=== PATIENT | male | born 1980 | race Caucasian/White ===

== ENCOUNTER 2018-11-23 12:58 | Inpatient (IN) | payer OTHER ==
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
[2018-11-23] MEDS ORDERED: MENTHOL/PHENOL 1 EACH UD MM PRN (20:19)
[2018-11-23] MEDS ORDERED: DICYCLOMINE HCL 10 MG CAPSULE PO PRN (20:19)
[2018-11-23] MEDS ORDERED: MAGNESIUM CITRATE 300 ML BOTTLE PO PRN (20:19)
[2018-11-23] MEDS ORDERED: MAG HYDROX/AL HYDROX/SIMETH 30 ML UNIT-DOSE CUP PO PRN (20:19)
[2018-11-23] MEDS ORDERED: chlordiazePOXIDE HCL 25 MG CAPSULE PO PRN (20:19)
[2018-11-23] MEDS ORDERED: MAGNESIUM HYDROX 2400MG/30ML ORAL SUSPENSION 30 ML CUP PO PRN (20:19)
[2018-11-23] MEDS ORDERED: P-EPHED 60MG/TRIPROLIDI 2.5MG TABLET PO PRN (20:19)
[2018-11-23] MEDS ORDERED: METHOCARBAMOL 500 MG TABLET PO PRN (20:19)
[2018-11-23] MEDS ORDERED: guaiFENesin 200 MG/10 ML 10 ML UNIT-DOSE CUPS PO PRN (20:19)
[2018-11-23] MEDS ORDERED: ACETAMINOPHEN 325 MG TABLET (FP) PO PRN (20:19)
[2018-11-23] MEDS: THIAMINE HCL 100 MG TABLET (FP) PO SCH (21:38)
[2018-11-23] MEDS: chlordiazePOXIDE HCL 25 MG CAPSULE PO SCH (22:00)
[2018-11-24] MEDS: chlordiazePOXIDE HCL 25 MG CAPSULE PO SCH ×4 (05:35→22:14)
--- NOTE | 2018-11-24 10:31 | PN ---
S CIWA - CIWA Score Nausea/Vomitin-No Nausea/No Vomiting Muscle Tremors: 2 Anxiety: 3 Agitation: 2 Paroxysmal Sweats: 3 Orientation: 0-Oriented Tacttile Disturbances: 0-None Auditory Disturbances: 0-None Visual Disturbances: 0-None Headache: 2-Mild CIWA-Ar Total Score: 12 BHS Progress Note (SOAP) Subjective: c/o headache, sweats, anxiety, and shakes. Objective: 11/24/18 10:30 Vital Signs 11/24/18 11/24/18 11/24/18 03:30 06:00 09:30 Temperature 97.7 F 95.9 F L Pulse Rate 75 89 Respiratory 18 18 18 Rate Blood Pressure 117/59 L 134/76 Labs pending. Assessment: 11/24/18 10:30 AOX3, in no respiratory distress. Full ROM, ambulating in the unit. Withdrawal symptoms Plan: continue detox.
[2018-11-24 10:36] LABS: PH,URINE 6.5 (5.0-8.0); URINE APPEARANCE CLEAR; URINE BILIRUBIN NEGATIVE (NEGATIVE); URINE COLOR YELLOW; URINE GLUCOSE (UA) TRACE (NEGATIVE); URINE KETONE 1+ (NEGATIVE); URINE LEUK ESTERASE NEGATIVE (NEGATIVE); URINE NITRITE NEGATIVE (NEGATIVE); URINE PROTEIN NEGATIVE (NEGATIVE)
[2018-11-24] MEDS: PRENATAL VITAMINS W/ FOLIC ACID TABLET (FP) PO SCH (11:04)
[2018-11-24 13:11] LABS: ALBUMIN 3.9 g/dl (3.4-5.0); BILIRUBIN,TOTAL 0.6 mg/dL (0.2-1); BLOOD UREA NITROGEN 5.8 mg/dL (7-18); CALCIUM 9.5 mg/dL (8.5-10.1); CREATININE 0.9 mg/dL (0.55-1.3); POTASSIUM 3.3 mmol/L (3.5-5.1); TOT PROT 7.7 g/dl (6.4-8.2)
[2018-11-24 13:12] LABS: HEMATOCRIT 44.6 % (35.4-49); HEMOGLOBIN 15.1 GM/dL (11.7-16.9); MCH 32.6 pg (25.7-33.7); MCHC 33.8 g/dl (32.0-35.9); MEAN CELL VOLUME 96.4 fl (80-96); MEAN PLT VOLUME 7.5 fl (7.5-11.1); PLATELET COUNT 208 K/MM3 (134-434); RBC 4.63 M/mm3 (4.00-5.60); RDW 13.1 % (11.9-15.9); WHITE BLOOD COUNT 4.8 K/mm3 (4.0-10.0)
--- NOTE | 2018-11-24 13:33 | CONSULT ---
[facility] Psychiatric Consult - Data Date of interview: 11/24/18 Admission source: [facility] Identifying data: First admission to [facility] for this 38 y/o [place]-born male self-referred for detoxification (alcohol). Interviewd at [address] [place] [address]. Patient is single, no children, undomiciled, unemployed and deprived of any source of income. Substance Abuse History: Confirmed by patient. Details in current [facility] report as follows : Smoking history: Former smoker. Have you smoked in the past 12 months : No. Cigars Per Day: 0. Hx Chewing Tobacco Use: No. Initiated information on smoking cessation: No. - Substance & Tx. History. Hx Alcohol Use: Yes. Hx Substance Use: Yes. Substance Use Type: Alcohol. Hx Substance Use Treatment: Yes ([facility]). - Substances abused. Alcohol. Other (specify): BEER. Substance route: Oral. Frequency: Daily. Amount used: 7 beers size of 24 ounces. Age of first use: 14. Date of last use: 11/21/18 Medical History: Patient endorses good general health. Psychiatric History: Patient denies history of psychiatric hospitalizations. Only 1-2 visits at [facility] ([facility]). Mr Colon has not received a formal DSM diagnosis with the exception of alcohol use disorder. No prior prescription of psychotropics. No OPD care. Patient does recognize the negative impact of alcoholism upon multiple areas of his personal life ( interpersonal, vocational, psychological). Endorses episodes of dysphoria. History of self-mutilation (healed scars from self-inflicted knott are noted on left forearm). Physical/Sexual Abuse/Trauma History: Patient denies history of abuse. Additional Comment: Urine drug screen results: BZO-Benzodiazepines. Noted. Mental Status Exam - Mental Status Exam Alert and Oriented to: Time, Place, Person Cognitive Function: Good Patient Appearance: Well Groomed Mood: Nervous, Withdrawn, Anxious Affect: Mood Congruent, Constricted Patient Behavior: Fatigued, Appropriate, Cooperative Speech Pattern: Clear Voice Loudness: Normal Thought Process: Intact, Goal Oriented Thought Disorder: Not Present Hallucinations: Denies Suicidal Ideation: Denies Homicidal Ideation: Denies Insight/Judgement: Poor Sleep: Well Appetite: Good Muscle strength/Tone: Normal Gait/Station: Normal Psychiatric Findings - Problem List ([place] 1, 2,3) (1) Alcohol dependence with uncomplicated withdrawal Current Visit: Yes Status: Acute (2) Substance induced mood disorder Current Visit: Yes Status: Chronic - Initial Treatment Plan Initial Treatment Plan: Psychoeducation. Sleep hygiene. Detoxification. Patient is made aware of MAT options for relapse prevention. Support provided in this session. Rehabilitation recommended. Observation.
[2018-11-24] MEDS: ACETAMINOPHEN 325 MG TABLET (FP) PO PRN (20:11)
[2018-11-24] MEDS: THIAMINE HCL 100 MG TABLET (FP) PO SCH (22:14)
[2018-11-24] MEDS: MELATONIN 5 MG TABLETS PO PRN (22:14)
[2018-11-25] MEDS: chlordiazePOXIDE HCL 25 MG CAPSULE PO SCH ×4 (06:07→22:30)
[2018-11-25] MEDS: PRENATAL VITAMINS W/ FOLIC ACID TABLET (FP) PO SCH (10:16)
[2018-11-25] MEDS: BISMUTH SUBSALICYLATE 524 MG/30 ML UD PO PRN (10:16)
[2018-11-25] MEDS: IBUPROFEN 400 MG TABLET (FP) PO PRN (10:18)
--- NOTE | 2018-11-25 10:53 | EKG ---
Test Reason : Blood Pressure : / mmHG Vent. Rate : 065 BPM Atrial Rate : 065 BPM P-R Int : 112 ms QRS Dur : 078 ms QT Int : 396 ms P-R-T Axes : 059 069 068 degrees QTc Int : 411 ms NORMAL SINUS RHYTHM NORMAL ECG NO PREVIOUS ECGS AVAILABLE Confirmed by BERLIN SAUL MD ([id number]) on 11/25/2018 10:53:20 AM Referred By: Confirmed By:BERLIN SAUL MD
--- NOTE | 2018-11-25 14:22 | PN ---
S CIWA - CIWA Score Nausea/Vomitin-Mild Nausea/No Vomiting Muscle Tremors: 4-Moderate,w/Arms Extend Anxiety: 4-Mod. Anxious/Guarded Agitation: 4-Moderately Restless Paroxysmal Sweats: 3 Orientation: 0-Oriented Tacttile Disturbances: 0-None Auditory Disturbances: 0-None Visual Disturbances: 0-None Headache: 1-Very Mild CIWA-Ar Total Score: 17 BHS Progress Note (SOAP) Subjective: Stomachache, diarrhea after eating since yesterday, anxious, nervous, interrupted sleep, sweating. Patient requesting ensure. Objective: 11/25/18 14:18 Last Vital Signs Temp Pulse Resp BP Pulse Ox 97.8 F 75 16 122/70 11/25/18 13:34 11/25/18 13:34 11/25/18 13:34 11/25/18 13:34 Laboratory Tests 11/24/18 11/24/18 11/24/18 08:50 10:40 10:40 WBC 4.8 RBC 4.63 Hgb 15.1 Hct 44.6 MCV 96.4 H MCH 32.6 MCHC 33.8 RDW 13.1 Plt Count 208 MPV 7.5 Sodium 143 Potassium 3.3 L Chloride 103 Carbon Dioxide 31 Anion Gap 9 BUN 5.8 L Creatinine 0.9 Est GFR (CKD-EPI)AfAm 125.13 Est GFR (CKD-EPI)NonAf 107.97 Random Glucose 83 Calcium 9.5 Total Bilirubin 0.6 AST 45 H ALT 33 Alkaline Phosphatase 81 Total Protein 7.7 Albumin 3.9 Urine Color Yellow Urine Appearance Clear Urine pH 6.5 Ur Specific [place] 1.011 Urine Protein Negative Urine Glucose (UA) Trace Urine Ketones 1+ H Urine Blood Negative Urine Nitrite Negative Urine Bilirubin Negative Urine Urobilinogen 1.0 Ur Leukocyte Esterase Negative RPR Titer 11/24/18 10:40 WBC RBC Hgb Hct MCV MCH MCHC RDW Plt Count MPV Sodium Potassium Chloride Carbon Dioxide Anion Gap BUN Creatinine Est GFR (CKD-EPI)AfAm Est GFR (CKD-EPI)NonAf Random Glucose Calcium Total Bilirubin AST ALT Alkaline Phosphatase Total Protein Albumin Urine Color Urine Appearance Urine pH Ur Specific [place] Urine Protein Urine Glucose (UA) Urine Ketones Urine Blood Urine Nitrite Urine Bilirubin Urine Urobilinogen Ur Leukocyte Esterase RPR Titer Nonreactive Labs reviewed: Sami 3.3 (supplemented) Assessment: 11/25/18 14:22 Withdrawal sxs Noted with hypokalemia Plan: Continue detox Encouraged PO water intake Hypokalemia: K Dur 40 Meq solution PO x 2 doses (at least 4 hrs apart), check serum K level in AM
[2018-11-25] MEDS ORDERED: POTASSIUM CHLORIDE ORAL LIQUID 20 MEQ/15 ML PO ONE ×2 (14:23→20:00)
[2018-11-25] MEDS: MELATONIN 5 MG TABLETS PO PRN (22:30)
[2018-11-25] MEDS: THIAMINE HCL 100 MG TABLET (FP) PO SCH (22:30)
[2018-11-26] MEDS ORDERED: chlordiazePOXIDE HCL 10 MG CAPSULE PO PRN
[2018-11-26] MEDS: chlordiazePOXIDE HCL 10 MG CAPSULE PO SCH ×4 (05:15→22:30)
[2018-11-26] MEDS: ACETAMINOPHEN 325 MG TABLET (FP) PO PRN ×2 (08:56→22:32)
[2018-11-26] MEDS: BISMUTH SUBSALICYLATE 524 MG/30 ML UD PO PRN (08:56)
[2018-11-26] MEDS: PRENATAL VITAMINS W/ FOLIC ACID TABLET (FP) PO SCH (10:43)
[2018-11-26] MEDS: ONDANSETRON *ODT* 4 MG TABLET SL PRN (14:33)
--- NOTE | 2018-11-26 15:34 | PN ---
S CIWA - CIWA Score Nausea/Vomitin Muscle Tremors: None Anxiety: 3 Agitation: 2 Paroxysmal Sweats: No Perspiration Orientation: 0-Oriented Tacttile Disturbances: 0-None Auditory Disturbances: 0-None Visual Disturbances: 2-Mild Sensitivity Headache: 3-Moderate CIWA-Ar Total Score: 13 BHS Progress Note (SOAP) Subjective: Stomach Cramping, H/A, Nausea, Diarrhea. Objective: PATIENT A & O X 3, OBSERVED AMBULATING ON UNIT UNASSISTED. IN NO ACUTE DISTRESS. 11/26/18 15:32 Vital Signs Temperature 96.8 F L 11/26/18 13:23 Pulse Rate 91 H 11/26/18 13:23 Respiratory Rate 20 11/26/18 13:23 Blood Pressure 123/67 11/26/18 13:23 O2 Sat by Pulse Oximetry (%) Laboratory Tests 11/24/18 11/24/18 11/24/18 08:50 10:40 10:40 WBC 4.8 RBC 4.63 Hgb 15.1 Hct 44.6 MCV 96.4 H MCH 32.6 MCHC 33.8 RDW 13.1 Plt Count 208 MPV 7.5 Sodium 143 Potassium 3.3 L Chloride 103 Carbon Dioxide 31 Anion Gap 9 BUN 5.8 L Creatinine 0.9 Est GFR (CKD-EPI)AfAm 125.13 Est GFR (CKD-EPI)NonAf 107.97 Random Glucose 83 Calcium 9.5 Total Bilirubin 0.6 AST 45 H ALT 33 Alkaline Phosphatase 81 Total Protein 7.7 Albumin 3.9 Urine Color Yellow Urine Appearance Clear Urine pH 6.5 Ur Specific [place] 1.011 Urine Protein Negative Urine Glucose (UA) Trace Urine Ketones 1+ H Urine Blood Negative Urine Nitrite Negative Urine Bilirubin Negative Urine Urobilinogen 1.0 Ur Leukocyte Esterase Negative RPR Titer 11/24/18 11/26/18 10:40 07:00 WBC RBC Hgb Hct MCV MCH MCHC RDW Plt Count MPV Sodium Potassium 4.1 Chloride Carbon Dioxide Anion Gap BUN Creatinine Est GFR (CKD-EPI)AfAm Est GFR (CKD-EPI)NonAf Random Glucose Calcium Total Bilirubin AST ALT Alkaline Phosphatase Total Protein Albumin Urine Color Urine Appearance Urine pH Ur Specific [place] Urine Protein Urine Glucose (UA) Urine Ketones Urine Blood Urine Nitrite Urine Bilirubin Urine Urobilinogen Ur Leukocyte Esterase RPR Titer Nonreactive LABS NOTED. RESULT OF REPEAT K LEVEL NOTED. K LEVEL NOW NOTED TO BE WITHIN NORMAL RANGE. RESULTS OF QFT /TB TEST PENDING. 11/26/18 15:33 Assessment: 11/26/18 15:32 WITHDRAWAL SYMPTOMS. ELEVATED AST LEVEL. 11/26/18 15:34 Plan: CONTINUE DETOX. INCREASE DAILY PO WATER INTAKE.
[2018-11-26] MEDS: hydrOXYzine PAMOATE 25 MG CAPSULE (FP) PO PRN (17:17)
[2018-11-26] MEDS: THIAMINE HCL 100 MG TABLET (FP) PO SCH (22:30)
[2018-11-26] MEDS: MELATONIN 5 MG TABLETS PO PRN (22:30)
[2018-11-27] MEDS: chlordiazePOXIDE HCL 10 MG CAPSULE PO SCH ×2 (05:37→16:46)
[2018-11-27] MEDS: ACETAMINOPHEN 325 MG TABLET (FP) PO PRN (05:39)
--- NOTE | 2018-11-27 10:07 | PN ---
S CIWA - CIWA Score Nausea/Vomitin-Mild Nausea/No Vomiting Muscle Tremors: 1-None Visible, but [place] Anxiety: 1-Mildly Anxious Agitation: 2 Paroxysmal Sweats: No Perspiration Orientation: 0-Oriented Tacttile Disturbances: 0-None Auditory Disturbances: 0-None Visual Disturbances: 0-None Headache: 1-Very Mild CIWA-Ar Total Score: 6 BHS Progress Note (SOAP) Subjective: alert,irritable,anxious,interrupted sleep Objective: 11/27/18 10:07 Vital Signs Temperature 97.0 F L 11/27/18 09:09 Pulse Rate 100 H 11/27/18 09:09 Respiratory Rate 16 11/27/18 09:09 Blood Pressure 131/78 11/27/18 09:09 O2 Sat by Pulse Oximetry (%) Assessment: 11/27/18 10:07 withdrawal symptom Plan: continue detox librium regimen,discharge in am
[2018-11-27] MEDS: PRENATAL VITAMINS W/ FOLIC ACID TABLET (FP) PO SCH (10:35)
[2018-11-27] MEDS: hydrOXYzine PAMOATE 25 MG CAPSULE (FP) PO PRN ×2 (10:37→19:23)
[2018-11-27] MEDS: IBUPROFEN 400 MG TABLET (FP) PO PRN (16:44)
[2018-11-27] MEDS: ONDANSETRON *ODT* 4 MG TABLET SL PRN (18:47)
[2018-11-27] MEDS: MELATONIN 5 MG TABLETS PO PRN (22:19)
[2018-11-27] MEDS: THIAMINE HCL 100 MG TABLET (FP) PO SCH (22:19)
[2018-11-28] MEDS ORDERED: chlordiazePOXIDE HCL 10 MG CAPSULE PO ONE (05:00)
--- NOTE | 2018-11-28 08:16 | DS ---
[facility] Detox Discharge Summary Admission Date: 11/23/18 Discharge Date: 11/28/18 - History Present History: Alcohol Dependence - Physical Exam Results Vital Signs: Vital Signs Temperature 98.1 F 11/28/18 07:44 Pulse Rate 81 11/28/18 07:44 Respiratory Rate 16 11/28/18 07:44 Blood Pressure 108/73 11/28/18 07:44 O2 Sat by Pulse Oximetry (%) Pertinent Admission Physical Exam Findings: pt arrived in withdrawals Laboratory Tests 11/24/18 11/24/18 11/24/18 08:50 10:40 10:40 WBC 4.8 RBC 4.63 Hgb 15.1 Hct 44.6 MCV 96.4 H MCH 32.6 MCHC 33.8 RDW 13.1 Plt Count 208 MPV 7.5 Sodium 143 Potassium 3.3 L Chloride 103 Carbon Dioxide 31 Anion Gap 9 BUN 5.8 L Creatinine 0.9 Est GFR (CKD-EPI)AfAm 125.13 Est GFR (CKD-EPI)NonAf 107.97 Random Glucose 83 Calcium 9.5 Total Bilirubin 0.6 AST 45 H ALT 33 Alkaline Phosphatase 81 Total Protein 7.7 Albumin 3.9 Urine Color Yellow Urine Appearance Clear Urine pH 6.5 Ur Specific [place] 1.011 Urine Protein Negative Urine Glucose (UA) Trace Urine Ketones 1+ H Urine Blood Negative Urine Nitrite Negative Urine Bilirubin Negative Urine Urobilinogen 1.0 Ur Leukocyte Esterase Negative RPR Titer 11/24/18 11/26/18 10:40 07:00 WBC RBC Hgb Hct MCV MCH MCHC RDW Plt Count MPV Sodium Potassium 4.1 Chloride Carbon Dioxide Anion Gap BUN Creatinine Est GFR (CKD-EPI)AfAm Est GFR (CKD-EPI)NonAf Random Glucose Calcium Total Bilirubin AST ALT Alkaline Phosphatase Total Protein Albumin Urine Color Urine Appearance Urine pH Ur Specific [place] Urine Protein Urine Glucose (UA) Urine Ketones Urine Blood Urine Nitrite Urine Bilirubin Urine Urobilinogen Ur Leukocyte Esterase RPR Titer Nonreactive pt is aaox3 ambulating no acute distress no s/s of withdrawals - Treatment Hospital Course: Detox Protocol Followed, Detoxed Safely, Responded well, Discharged Condition Good, Rehab Referral Accepted Patient has Accepted a Rehab Referral to: referred to [facility] inpatient rehab - Medication Discharge Medications: Ambulatory Orders NK [No Known Home Medication] 11/23/18
[2018-11-28 09:19] VITALS: BP 123/51; PULSE 110; TEMP 98.6
[2018-11-28] MEDS: PRENATAL VITAMINS W/ FOLIC ACID TABLET (FP) PO SCH (11:22)
== END 2018-11-28 11:07 | disposition home or self-care (01) | DRG 775 ==
LOC: YASAS 12:58 → Y6N 21:04
PROVIDERS: ADMIT Surgery; ATTEND Surgery
PROC: HZ2ZZZZ Detoxification Services for Substance Abuse Treatment (ICD-10-PCS; principal; 2018-11-23)
DX: F10.230 Alcohol dependence with withdrawal, uncomplicated (principal); F19.24 Other psychoactive substance dependence with psychoactive substance-induced mood disorder; F32.9 Major depressive disorder, single episode, unspecified; R00.0 Tachycardia, unspecified; R74.0 Nonspecific elevation of levels of transaminase and lactic acid dehydrogenase [LDH]; Z87.891 Personal history of nicotine dependence; Z88.0 Allergy status to penicillin; Z91.011 Allergy to milk products; Z91.5 Personal history of self-harm; Z59.0 Homelessness
CPT/HCPCS: 36415; 80053; 81003; 84132; 85027; 86480; 86593; 93005; 93010; Q0162